=== PATIENT | female | born 1960 | race Hispanic/Latino ===

== ENCOUNTER 2024-12-22 11:05 | Emergency (ER) | payer BC, OTHER, SELFPAY ==
[2024-12-22] MEDS ORDERED: Bacitracin 1 PK ONE (12:19)
[2024-12-22] MEDS ORDERED: Boostrix 0.5 ML (Tdap) VIAL (>/=7 yrs of age) ONE (12:20)
== END 2024-12-22 12:58 | disposition home or self-care (01) ==
LOC: NAV ERS 11:05
DX: S91.201A Unspecified open wound of right great toe with damage to nail, initial encounter (principal); S80.211A Abrasion, right knee, initial encounter; E11.9 Type 2 diabetes mellitus without complications; Z79.85 Long-term (current) use of injectable non-insulin antidiabetic drugs; W22.8XXA Striking against or struck by other objects, initial encounter; Y93.89 Activity, other specified
CPT/HCPCS: 90471; 90715